=== PATIENT | female | born 1960 | race Caucasian/White ===

== ENCOUNTER 2020-01-14 12:03 | Inpatient (IN) | payer SELFPAY ==
[~2020-01-14] VITALS: Ht 157.5 cm; Wt 38.6 kg
[~2020-01-14 12:03] MED LIST: BACLOFEN20 M1 PO; VOLTAREN75 MG PO
[2020-01-14] MEDS ORDERED: COLACE100 MG PO (12:16)
[2020-01-14] MEDS ORDERED: FERROUS SULFAT325 MG PO (12:17)
[2020-01-14] MEDS ORDERED: VENTOLIN HFA [SP8 GM INH (12:18)
[2020-01-14] MEDS ORDERED: HYDROCODON-ACE1 EAC7 PO (12:19)
[2020-01-14 12:40] VITALS: BP 120/65; BMI 15.5
[2020-01-14 12:41] LABS: BASOPHILS 0.6 % (0-2); EOSINOPHILS 2.2 % (0-7); HEMATOCRIT 26.8 % (36.0-48.0); IMMATURE GRANULOCYTES 0.3 % (0-5); LYMPHOCYTES 25.9 % (15-50); MCH 20.6 pg (26.0-34.0); MCHC 27.6 g/dL (31.0-37.0); MCV 74.7 fL (80.0-100.0); MEAN PLATELET VOLUME 8.8 fL (7.4-10.4); MONOCYTES 9.6 % (2-11); NEUTROPHILS 61.4 % (40-80); PLATELET COUNT 258 10x3/uL (130-400); RBC 3.59 10x6/uL (4.00-5.40); RDW 18.9 % (11.5-14.5); WBC 7.2 10x3/uL (4.8-10.8)
[2020-01-14 12:50] LABS: HEMOGLOBIN 7.4 g/dL (12-16)
[2020-01-14 12:52] LABS: CALC OSMOLALITY 269 mosm/kg (275-300); CALCIUM 8.9 mg/dL (8.5-10.1); CARBON DIOXIDE 24.2 mmol/L (21.0-32.0); CHLORIDE - SERUM 102 mmol/L (98-107); CREATININE - SERUM 0.7 mg/dL (0.6-1.3); GLUCOSE 90 mg/dL (74-106); POTASSIUM - SERUM 3.6 mmol/L (3.5-5.1); SODIUM 136 mmol/L (136-145); UREA NITROGEN 7 mg/dL (7-18); eGFR NON AFRICAN AMERICAN > 90 mL/min (90-120)
[2020-01-14 12:58] LABS: ALBUMIN 3.7 g/dL (3.4-5.0); ALKALINE PHOSPHATASE 95 U/L (30-120); ALT (SGPT) 10 U/L (10-68); BILIRUBIN - TOTAL 0.14 mg/dL (0.2-1.3); PROTEIN - SERUM 7.3 g/dL (6.4-8.2)
--- NOTE | 2020-01-14 13:50 | NUR ---
RECEIVED PT FROM ADMISSIONS STAFF, PT IS ALERT AND OPRIENTED, STATED SHE DOES NOT WEAR O2 AT HOME AND JUST USES HER INHALERS, PT HAS IV ACCESS TO RT WRIST AREA. LUNGS CTA, ABD SOUNDS PRESENT. BED IN LOWEST POSITION, CL IN REACH. CONTINUE WITH PLAN OF CARE
[2020-01-14 14:58] LABS: % SATURATION 3 % (15-55); IRON 20 ug/dl (35-150); TOTAL IRON BIND CAPACITY 547 ug/dl (260-445)
[2020-01-14 15:02] LABS: UNSAT IRON BIND CAPACITY 527 ug/dl (150-375)
[2020-01-14 15:14] LABS: THYROID STIMULATING HORMONE 9.53 uIU/mL (0.36-3.74)
--- NOTE | 2020-01-14 15:30 | NUR ---
STARTED PT 1ST UNIT OF BLOOD. PT IS TOLERATING WELL, NO S/SX OF DISTESS, VSS. CONTINUE WITH PLAN OF CARE
[2020-01-14 20:00] VITALS: BP 126/79
--- NOTE | 2020-01-14 20:00 | NUR ---
PT SITTING UP IN BED WITHOUT DISTRESS, AOX4. FAMILY AT BEDSIDE. RIGHT RIGHT WRIST INFUSING 2ND UNIT OF PRBC. VSS. DENIES NEEDS. CL IN REACH, WILL CTM
--- NOTE | 2020-01-14 20:45 | NUR ---
NORCO GIVEN FOR PAIN 01/30. DENIES OTHER NEEDS. CL IN REACH, WILL CTM
[2020-01-15] VITALS: BP 111/58
--- NOTE | 2020-01-15 02:00 | NUR ---
PT GIVEN NORCO FOR PAIN 04/02. DENIES OTHER NEEDS, WILL CTM
[2020-01-15 04:00] VITALS: BP 118/61
[2020-01-15 04:28] LABS: BASOPHILS 1.3 % (0-2); EOSINOPHILS 3.6 % (0-7); IMMATURE GRANULOCYTES 0.2 % (0-5); LYMPHOCYTES 24.1 % (15-50); MCH 23.3 pg (26.0-34.0); MCHC 30.1 g/dL (31.0-37.0); MEAN PLATELET VOLUME 9.9 fL (7.4-10.4); MONOCYTES 14.7 % (2-11); NEUTROPHILS 56.1 % (40-80); PLATELET COUNT 229 10x3/uL (130-400); RBC 4.29 10x6/uL (4.00-5.40); RDW 19.3 % (11.5-14.5)
[2020-01-15 04:30] LABS: HEMATOCRIT 33.2 % (36.0-48.0); MCV 77.4 fL (80.0-100.0); WBC 4.5 10x3/uL (4.8-10.8)
[2020-01-15 04:54] LABS: % SATURATION 10 % (15-55); IRON 41 ug/dl (35-150); TOTAL IRON BIND CAPACITY 406 ug/dl (260-445); UNSAT IRON BIND CAPACITY 365 ug/dl (150-375)
[2020-01-15 05:32] LABS: ALBUMIN 2.8 g/dL (3.4-5.0); ALKALINE PHOSPHATASE 81 U/L (30-120); ALT (SGPT) 8 U/L (10-68); BILIRUBIN - TOTAL 0.17 mg/dL (0.2-1.3); CALC OSMOLALITY 279 mosm/kg (275-300); CALCIUM 8.5 mg/dL (8.5-10.1); CARBON DIOXIDE 24.8 mmol/L (21.0-32.0); CHLORIDE - SERUM 112 mmol/L (98-107); CREATININE - SERUM 0.7 mg/dL (0.6-1.3); FERRITIN 7 ng/mL (3-244); GLUCOSE 84 mg/dL (74-106); POTASSIUM - SERUM 3.7 mmol/L (3.5-5.1); PROTEIN - SERUM 5.7 g/dL (6.4-8.2); SODIUM 142 mmol/L (136-145); UREA NITROGEN 6 mg/dL (7-18); eGFR NON AFRICAN AMERICAN > 90 mL/min (90-120)
--- NOTE | 2020-01-15 07:53 | NUR ---
PT SITTING UP IN BED RECEIVING BREATHING TREATMENT, ASKED FOR LIQUIDS, PT EGD SCHEDULED FOR 3PM. ADVISED PT SHE MUST BE NPO FOR AT LEAST 6 HOURS SO NOTHING AFTER 8AM. ADMNISTERED SCHEDULED MEDS, PT IS ALERT AND ORIENTED H&H IMPROVED AFTER 2 UNITS ADMNISTERED YESTERDAY. CL IN REACH CONTINUE WITH PLAN OF CARE
[2020-01-15 09:10] VITALS: BP 150/69
[2020-01-15 12:40] VITALS: BP 120/64
[2020-01-15 14:02] VITALS: Ht 157.5 cm; Wt 38.6 kg
[2020-01-15 15:11] LABS: CEA 3.5 ng/mL (0.0-4.7)
--- NOTE | 2020-01-15 17:03 | NUR ---
I have reviewed this patient and I concur with the Shift Assessment completed by the Licensed Practical Nurse today this shift.
[2020-01-15 17:15] VITALS: BP 146/66
--- NOTE | 2020-01-15 19:30 | NUR ---
PT SITTING UP IN BED WITHOUT DISTRESS, AOX4. IV RIGHT FA SL, DENIES NEEDS AT THIS TIME. CL IN REACH, WILL CTM
[2020-01-15 20:00] VITALS: BP 119/66
[2020-01-16] VITALS: BP 112/65
[2020-01-16 04:00] VITALS: BP 103/54
[2020-01-16 06:58] LABS: BASOPHILS 0.4 % (0-2); EOSINOPHILS 3.9 % (0-7); HEMATOCRIT 33.5 % (36.0-48.0); HEMOGLOBIN 9.8 g/dL (12-16); IMMATURE GRANULOCYTES 0.2 % (0-5); LYMPHOCYTES 16.7 % (15-50); MCHC 29.3 g/dL (31.0-37.0); MCV 78.5 fL (80.0-100.0); MONOCYTES 12.2 % (2-11); NEUTROPHILS 66.6 % (40-80); PLATELET COUNT 224 10x3/uL (130-400); RBC 4.27 10x6/uL (4.00-5.40); RDW 19.7 % (11.5-14.5); WBC 5.4 10x3/uL (4.8-10.8)
[2020-01-16 07:13] LABS: ALBUMIN 3.1 g/dL (3.4-5.0); ALKALINE PHOSPHATASE 120 U/L (30-120); ALT (SGPT) 9 U/L (10-68); CALC OSMOLALITY 278 mosm/kg (275-300); CALCIUM 8.9 mg/dL (8.5-10.1); CHLORIDE - SERUM 109 mmol/L (98-107); CREATININE - SERUM 0.7 mg/dL (0.6-1.3); GLUCOSE 77 mg/dL (74-106); POTASSIUM - SERUM 3.6 mmol/L (3.5-5.1); PROTEIN - SERUM 6.3 g/dL (6.4-8.2); SODIUM 142 mmol/L (136-145); UREA NITROGEN 5 mg/dL (7-18); eGFR NON AFRICAN AMERICAN > 90 mL/min (90-120)
--- NOTE | 2020-01-16 07:29 | NUR ---
ALERT AND ORIENTED. LUNGS CLEAR BILATERALLY. HEART SOUNDS S1 AND S2 HEARD IN ALL GREGORIO. BOWEL SOUNDS ACTIVE X 4. IV TO RIGHT WRIST PATENT WITHOUT REDNESS. DENIES NEEDS. BED LOW. CALL VERGARA AND PERSONAL ITEMS IN REACH. WILL CONTINUE TO MONITOR.
[2020-01-16] MEDS ORDERED: SYNTHROID25 MCG PO (09:40)
[2020-01-16] MEDS ORDERED: NICODERM CQ1 EAC2 TRANSDERM (09:40)
[2020-01-16] MEDS ORDERED: PROTONIX40 MG PO (09:41)
[2020-01-16 11:05] VITALS: BP 120/68
--- NOTE | 2020-01-16 13:42 | NUR ---
DISCHARGE EDUCATION PROVIDED BOTH WRITTEN AND VERBAL.VERBALIZED UNDERSTANDING DENIES FURTHER QUESTIONS. IV REMOVED FROM RFA WITH TIP INTACT. PATIENT DC HOME WITH ALL BELONGINGS.
== END 2020-01-16 13:43 | disposition home or self-care (01) | DRG 811 ==
LOC: D.MS 12:03
PROVIDERS: Family Medicine; Internal Medicine Gastroenterology; ADMIT Family Medicine; ATTEND Family Medicine
PROC: 0DB68ZX Excision of Stomach, Via Natural or Artificial Opening Endoscopic, Diagnostic (ICD-10-PCS; principal; 2020-01-15 15:00)
DX: D64.9 Anemia, unspecified (principal); E43 Unspecified severe protein-calorie malnutrition; K25.4 Chronic or unspecified gastric ulcer with hemorrhage; K21.0 Gastro-esophageal reflux disease with esophagitis

== ENCOUNTER 2020-03-08 09:55 | Emergency (ER) | payer SELFPAY ==
[~2020-03-08] VITALS: Ht 157.5 cm; Wt 39.5 kg
[~2020-03-08 09:55] MED LIST changes: +COLACE100 MG PO; +FERROUS SULFAT325 MG PO; +HYDROCODON-ACE1 EAC7 PO; +NICODERM CQ1 EAC2 TRANSDERM; +PROTONIX40 MG PO; +SYNTHROID25 MCG PO; +VENTOLIN HFA [SP8 GM INH
[2020-03-08 10:11] VITALS: Ht 157.5 cm; Wt 39.5 kg
[2020-03-08 10:33] LABS: BASOPHILS 0.2 % (0-2); EOSINOPHILS 0.2 % (0-7); HEMATOCRIT 37.5 % (36.0-48.0); HEMOGLOBIN 11.8 g/dL (12-16); IMMATURE GRANULOCYTES 0.2 % (0-5); LYMPHOCYTES 15.8 % (15-50); MCH 26.5 pg (26.0-34.0); MCHC 31.5 g/dL (31.0-37.0); MCV 84.3 fL (80.0-100.0); MEAN PLATELET VOLUME 8.7 fL (7.4-10.4); NEUTROPHILS 77.6 % (40-80); PLATELET COUNT 259 10x3/uL (130-400); RBC 4.45 10x6/uL (4.00-5.40); RDW 24.1 % (11.5-14.5); WBC 6.5 10x3/uL (4.8-10.8)
[2020-03-08 10:46] LABS: BILIRUBIN NEGATIVE (NEGATIVE); GLUCOSE NEGATIVE (NEGATIVE); KETONE NEGATIVE (NEGATIVE); NITRITE NEGATIVE (NEGATIVE); UROBILINOGEN NORMAL (NORMAL)
[2020-03-08 10:51] LABS: CALC OSMOLALITY 281 mosm/kg (275-300); CALCIUM 9.4 mg/dL (8.5-10.1); CARBON DIOXIDE 25.6 mmol/L (21.0-32.0); CHLORIDE - SERUM 105 mmol/L (98-107); CREATININE - SERUM 0.8 mg/dL (0.6-1.3); GLUCOSE 93 mg/dL (74-106); POTASSIUM - SERUM 3.4 mmol/L (3.5-5.1); SODIUM 142 mmol/L (136-145); UREA NITROGEN 9 mg/dL (7-18); eGFR NON AFRICAN AMERICAN 78 mL/min (90-120)
[2020-03-08 10:59] LABS: ALBUMIN 4.1 g/dL (3.4-5.0); ALKALINE PHOSPHATASE 92 U/L (30-120); ALT (SGPT) 10 U/L (10-68); AMYLASE - SERUM 56 U/L (25-115); LIPASE 70 U/L (73-393); PROTEIN - SERUM 7.1 g/dL (6.4-8.2)
[2020-03-08 11:01] LABS: TROPONIN-I < 0.017 ng/mL (0.000-0.060)
[2020-03-08] MEDS ORDERED: LEVOFLOXACIN500 MG PO (12:40)
[2020-03-08] MEDS ORDERED: ZOFRAN ODT4 MG/UDTAB PO (12:40)
[2020-03-08] MEDS ORDERED: FLORASTOR250 MG PO (12:40)
[2020-03-08] MEDS ORDERED: FLAGYL500 MG PO (12:40)
[2020-03-08 13:18] VITALS: BP 177/97
== END 2020-03-08 13:21 | disposition home or self-care (01) ==
LOC: D.ER 09:55
PROVIDERS: Family Medicine
DX: R51 Headache (principal); K52.9 Noninfective gastroenteritis and colitis, unspecified; E87.6 Hypokalemia

== ENCOUNTER 2020-03-09 21:32 | Inpatient (IN) | payer SELFPAY ==
[~2020-03-09] VITALS: Ht 157.5 cm; Wt 39.5 kg
--- NOTE | ~2020-03-09 | EEG ---
PATIENT:JUDE URSSELL MEDICAL RECORD: [id number] DATE OF : 64 LOCATION:D.220 D.MS ADMISSION DATE: 03/09/20 REFERRING PHYSICIAN: INTERPRETING PHYSICIAN: NADEGE DORSEY MD DATE OF SERVICE: 03/11/2020 DATE OF EE03/11/2020 ROOM NUMBER: 2201 ORDERED BY: Dr. Dorsey. CASE HISTORY: A 59-year-old female presenting to the hospital with report of a single seizure with symptoms suggesting generalized seizure with sudden onset of shaking of head and all extremities jerking, and after spell the patient was confusional. Question has been raised as to whether or not seizure could be secondary to Levaquin use. PROCEDURE: EEG done as a routine bedside portable recording using the standard 10-20 international electrode system, 16-channel was used with 17th as EKG. Photic stimulation was used as activation procedures. DESCRIPTION OF PROCEDURE: EEG opens with the patient awake with the record displaying only fair organization of background. In left hemisphere, there was a posterior dominant rhythm of 15 Hz, occasionally configured with theta slowing. In the right hemisphere, there was frequent and prominent theta slowing as well as frequent delta slowing all much more prominent in the right hemisphere than left. There were bilateral synchronous complexes of sharps and slows with increased amplitude in the right hemisphere. There was also frequent spike and wave activity in the right hemisphere, primarily at T4-T6 with higher amplitudes as well as other electrode regions of C4-P4, P4-T6, F8-T6. Photic stimulation did not yield a photoparoxysmal response. IMPRESSION: Markedly abnormal EEG with an active seizure focus in the right hemisphere suggesting a focal seizure disorder. TRANSINT:[id number] Voice Confirmation ID: [id number] DOCUMENT ID: [id number] NADEGE DORSEY MD CC: [id number] DICTATION DATE: 03/11/20 1146 ELECTROMECHANICAL EQUIPMENT TESTER: 03/11/20 1400 ADM IN [place] [address] [place] [address]
[~2020-03-09 21:32] MED LIST changes: +FLAGYL500 MG PO; +FLORASTOR250 MG PO; +LEVOFLOXACIN500 MG PO; +ZOFRAN ODT4 MG/UDTAB PO
--- NOTE | 2020-03-09 21:50 | NUR ---
FRIEND OF PATIENT CALLED FOR STAFF TO COME TO THE ROOM, DUE TO PT HAVING A SIEZURE, UPON ARRIVAL THIS NURSE NOTED PT IN A POST ECTAL STATE. PT GIVEN MEDS PER MD ORDERS
[2020-03-09 22:04] LABS: BASOPHILS 0.1 % (0-2); EOSINOPHILS 0.8 % (0-7); HEMATOCRIT 37.5 % (36.0-48.0); HEMOGLOBIN 12.1 g/dL (12-16); IMMATURE GRANULOCYTES 0.5 % (0-5); LYMPHOCYTES 11.6 % (15-50); MCHC 32.3 g/dL (31.0-37.0); MCV 83.7 fL (80.0-100.0); MEAN PLATELET VOLUME 8.9 fL (7.4-10.4); MONOCYTES 10.8 % (2-11); NEUTROPHILS 76.2 % (40-80); PLATELET COUNT 291 10x3/uL (130-400); RBC 4.48 10x6/uL (4.00-5.40); RDW 23.3 % (11.5-14.5)
[2020-03-09 22:13] LABS: CALC OSMOLALITY 266 mosm/kg (275-300); CARBON DIOXIDE 20.5 mmol/L (21.0-32.0); CHLORIDE - SERUM 96 mmol/L (98-107); GLUCOSE 97 mg/dL (74-106); SODIUM 134 mmol/L (136-145); UREA NITROGEN 9 mg/dL (7-18); eGFR NON AFRICAN AMERICAN 49 mL/min (90-120)
[2020-03-09 22:20] LABS: CREATININE - SERUM 1.2 mg/dL (0.6-1.3)
[2020-03-09 22:29] LABS: ALBUMIN 3.9 g/dL (3.4-5.0); ALKALINE PHOSPHATASE 90 U/L (30-120); ALT (SGPT) 11 U/L (10-68); BILIRUBIN - TOTAL 0.18 mg/dL (0.2-1.3); CREATINE KINASE 72 UL (21-215); MAGNESIUM - SERUM 1.9 mg/dL (1.8-2.4); PRO BNP 805 pg/mL (0-125); THYROID STIMULATING HORMONE 2.31 uIU/mL (0.36-3.74)
[2020-03-09 22:30] LABS: LIPASE 115 U/L (73-393); TROPONIN-I < 0.017 ng/mL (0.000-0.060)
[2020-03-10] VITALS (7 sets, daily range): BP systolic 128–156; BP diastolic 63–91; Ht 157.5 cm; Wt 39.5 kg
[2020-03-10 00:05] LABS: UDS - AMPHET NEGATIVE QUAL (NEGATIVE); UDS - BARB NEGATIVE QUAL (NEGATIVE); UDS - BENZO NEGATIVE QUAL (NEGATIVE); UDS - COCAINE NEGATIVE QUAL (NEGATIVE); UDS - OPIATE POSITIVE QUAL (NEGATIVE); UDS - PCP NEGATIVE QUAL (NEGATIVE); UDS - THC NEGATIVE QUAL (NEGATIVE)
[2020-03-10 00:28] LABS: BILIRUBIN NEGATIVE (NEGATIVE); GLUCOSE NEGATIVE (NEGATIVE); KETONE SMALL mg/dL (NEGATIVE); NITRITE NEGATIVE (NEGATIVE); UROBILINOGEN NORMAL (NORMAL)
[2020-03-10 00:31] LABS: BACTERIA FEW /hpf (NEGATIVE); EPITHELIAL CELLS 0-5 /hpf (0-5); RED CELLS - URINE 0-5 /hpf (0-5)
--- NOTE | 2020-03-10 03:34 | NUR ---
ROCEPHIN INFUSION COMPLETE AT THIS TIME. PT RESTING IN BED WITH FRIEND, RISE AND FALL OF CHEST NOTED. WILL CONTINUE TO MONITOR.
--- NOTE | 2020-03-10 04:00 | NUR ---
FLAGYL INFUSION COMPLETE AT THIS TIME.
[2020-03-10 04:18] LABS: APTT 25.7 SECONDS (22.8-39.4); INR 1.08 (0.85-1.17); PROTIME 13.9 SECONDS (11.6-15.0)
[2020-03-10 04:35] LABS: CHOL - HDL RATIO 4.5 ratio (2.3-4.1)
--- NOTE | 2020-03-10 09:54 | NUR ---
Rehab Note- Acute Inpatient Rehab prescreen order received. The patient has no noted insurance at this time per facesheet. Will check with business office to verify insurance. Thank you for this referral! Janice Hart RN Clinical Liaison, [facility] Rehab
--- NOTE | 2020-03-10 14:04 | NUR ---
PATIENT ADMITTED TO ROOM 2201. ADMISSION COMPLETE. DENIES NEEDS. DR RIKA STRICKLAND.
--- NOTE | 2020-03-10 16:35 | NUR ---
SPOKE WITH DR MELÉNDEZ WHO STATES WILL SEE PATIENT MONDAY IF PATIENT STILL HERE BUT LIKELY LEVAQUIN REACTION.
--- NOTE | 2020-03-10 20:00 | NUR ---
A&O X 4, SUPINE IN BED, NO WEAKNESS. REPORTS HEADACHE 01/30. REQUESTS SLEEP AID FOR TONIGHT, NO FURTHER NEEDS BIANCA. CTM.
--- NOTE | 2020-03-11 01:45 | NUR ---
I have reviewed this patient and I concur with the Shift Assessment completed by the Licensed Practical Nurse today this shift.
[2020-03-11 04:00] VITALS: BP 140/75
[2020-03-11 06:11] LABS: BASOPHILS 0.4 % (0-2); EOSINOPHILS 5.5 % (0-7); HEMATOCRIT 33.1 % (36.0-48.0); HEMOGLOBIN 10.4 g/dL (12-16); IMMATURE GRANULOCYTES 0.2 % (0-5); LYMPHOCYTES 16.1 % (15-50); MCH 26.4 pg (26.0-34.0); MCHC 31.4 g/dL (31.0-37.0); MEAN PLATELET VOLUME 8.6 fL (7.4-10.4); MONOCYTES 13.6 % (2-11); NEUTROPHILS 64.2 % (40-80); PLATELET COUNT 236 10x3/uL (130-400); RBC 3.94 10x6/uL (4.00-5.40); RDW 23.6 % (11.5-14.5)
[2020-03-11 06:37] LABS: CALCIUM 8.6 mg/dL (8.5-10.1); CHLORIDE - SERUM 105 mmol/L (98-107); GLUCOSE 86 mg/dL (74-106); MAGNESIUM - SERUM 1.9 mg/dL (1.8-2.4); PHOSPHOROUS 3.4 mg/dL (2.5-4.9); SODIUM 141 mmol/L (136-145)
[2020-03-11 06:44] LABS: WBC 4.7 10x3/uL (4.8-10.8)
[2020-03-11 07:46] LABS: CALC OSMOLALITY 276 mosm/kg (275-300); CARBON DIOXIDE 26.2 mmol/L (21.0-32.0); CREATININE - SERUM 0.7 mg/dL (0.6-1.3); UREA NITROGEN 4 mg/dL (7-18); eGFR NON AFRICAN AMERICAN > 90 mL/min (90-120)
[2020-03-11 07:50] LABS: POTASSIUM - SERUM 2.7 mmol/L (3.5-5.1)
[2020-03-11 08:46] VITALS: BP 156/74
--- NOTE | 2020-03-11 09:09 | NUR ---
RESTING IN BED, NO DISTRESS NOTED, IV INFUSING WITH KEPPRA, CONT TO MONITOR FOR SEIZURES
[2020-03-11 12:17] VITALS: BP 140/63
[2020-03-11] MEDS ORDERED: NICODERM CQ1 EAC3 TRANSDERM (12:46)
[2020-03-11] MEDS ORDERED: KEPPRA750 MG PO (12:47)
[2020-03-11] MEDS ORDERED: FLAGYL500 MG PO (12:48)
--- NOTE | 2020-03-11 14:17 | MORECARE ---
CASE MANAGEMENT DISCHARGE SUMMARY PATIENT: JUDE RUSSELL UNIT: [id number] ADM DATE: 03/09/20 AGE: 59 : [birth year] SEX: F ROOM/BED: D.2201 AUTHOR: ANTIONETTE STAPLES PHYSICIAN: REFERRING PHYSICIAN: ENRRIQUE RED MD DATE OF SERVICE: 03/11/20 Discharge Plan Patient Name: JUDE RUSSELL Facility: [facility]:[place] : 1960 Planned Disposition: Home or Self Care Anticipated Discharge Date: Discharge Date: Expected LOS: Initial Reviewer: [email or web address] Initial Review Date: 03/10/2020 Generated: 03/11/20 3:17 pm Comments DCP- Discharge Planning Updated by [email or web address]: Kelly Lutz on 03/11/20 1:[address] Patient Name: JUDE RUSSELL Admission Status: ER Accout number: [id number] Admission Date: 03-09-2020 : 1960 Admission Diagnosis: Attending: ENRRIQUE MATT Current LOS: 2 Anticipated DC Date: Planned Disposition: Home or Self Care Primary Insurance: UNINSURED DISCOUNT PLAN Discharge Planning Comments: CM met with patient to complete initial dc planning assessment. CM educated patient on the CM role and verbal consent given by patient to complete assessment. Patient lives at home & states that her mother just moved in with her. At discharge patient plans to return home and feels this is a safe discharge. CM discussed availability of home health, rehab services, and medical equipment. Her friend lives next door and will be her otr refrigerated cdl truck driver home. She works at [employer] and states that she has the money to fill her prescription of Keppra and abx. Patient denied known discharge needs at this time. CM will continue to follow and will assist as needed with dc plans/needs. Parts Advisor: Kelly Lutz DCPIA - Discharge Planning Initial Assessment Updated by [email or web address]: Kelly Lutz on 03/11/20 2:11 pm * Is the patient Alert and Oriented? Yes * How many steps to enter\exit or inside your home? * PCP WEEKS * Pharmacy [address] [facility] * Preadmission Environment Home with Family * ADLs Independent * Equipment None * List name and contact numbers for known caregivers / representatives who currently or will assist patient after discharge: MIRELLA RUSSELL [phone] * Verbal permission to speak to the caregivers and representatives has been obtained from the patient. N/A * Community resources currently utilized None * Additional services required to return to the preadmission environment? No * Can the patient safely return to the preadmission environment? Yes * Has this patient been hospitalized within the prior 30 days at any hospital? No Patient Name: JUDE RUSSELL Page [phone] at 1417 All edits/amendments must be made on the electronic document DICTATION DATE: 03/11/201416 BROTH MIXER: ZINA 03/11/201416 RPT#: [id number] DC DATE: STATUS: ADM IN [facility] [address] [place] [address] END OF REPORT
--- NOTE | 2020-03-11 15:18 | NUR ---
TOOK K RIDER TO PT ROOM TO START RIDERS AND THEN DC PT TO HOME, PT STATES THAT SHE IS NOT STAYING 3 HOURS FOR RIDERS TO COMPLETE, STATES THAT SHE CALLED HER SISTER TO COME ALREADY AND SHE COULD TAKE POTASSIUM AT HOME, STATED THAT K WAS LOW AND WOULD RESPOND BETTER TO IV, PT STATES NO IM LEAVING, PRINCE AWARE, STATES TO ALLOW PT TO GO AMA, PT SIGNED AMA, IV WAS REMOVED,TIP INTACT, PT WALKED [facility]
--- NOTE | 2020-03-12 13:38 | MORECARE ---
CASE MANAGEMENT DISCHARGE SUMMARY PATIENT: JUDE RUSSELL UNIT: [id number] ADM DATE: 03/09/20 AGE: 59 : 64 SEX: F ROOM/BED: D.2201 AUTHOR: ANTIONETTE STAPLES PHYSICIAN: REFERRING PHYSICIAN: ENRRIQUE RED MD DATE OF SERVICE: 03/12/20 Discharge Plan Patient Name: JUDE RUSSELL Facility: [facility]:[place] : 1960 Planned Disposition: Home or Self Care Anticipated Discharge Date: Discharge Date: 03/11/2020 Expected LOS: Initial Reviewer: [email or web address] Initial Review Date: 03/10/2020 Generated: 03/12/20 2:37 pm Comments DCP- Discharge Planning Updated by [id number]: Kelly Lutz on 03/11/20 1:[address] Patient Name: JUDE RUSSELL Admission Status: ER Accout number: [id number] Admission Date: 03-09-2020 : 1960 Admission Diagnosis: Attending: ENRRIQUE MATT Current LOS: 2 Anticipated DC Date: Planned Disposition: Home or Self Care Primary Insurance: UNINSURED DISCOUNT PLAN Discharge Planning Comments: CM met with patient to complete initial dc planning assessment. CM educated patient on the CM role and verbal consent given by patient to complete assessment. Patient lives at home & states that her mother just moved in with her. At discharge patient plans to return home and feels this is a safe discharge. CM discussed availability of home health, rehab services, and medical equipment. Her friend lives next door and will be her pick up and delivery driver home. She works at [employer] and states that she has the money to fill her prescription of Keppra and abx. Patient denied known discharge needs at this time. CM will continue to follow and will assist as needed with dc plans/needs. Academic Support Assistant: Kelly Lutz DCPIA - Discharge Planning Initial Assessment Updated by [email or web address]: Kelly Lutz on 03/11/20 2:11 pm * Is the patient Alert and Oriented? Yes * How many steps to enter\exit or inside your home? * PCP WEEKS * Pharmacy [address] [facility] * Preadmission Environment Home with Family * ADLs Independent * Equipment None * List name and contact numbers for known caregivers / representatives who currently or will assist patient after discharge: MIRELLA RUSSELL [phone] * Verbal permission to speak to the caregivers and representatives has been obtained from the patient. N/A * Community resources currently utilized None * Additional services required to return to the preadmission environment? No * Can the patient safely return to the preadmission environment? Yes * Has this patient been hospitalized within the prior 30 days at any hospital? No Last DP export: 03/11/20 1:17 p Patient Name: JUDE RUSSELL Page [phone] at 1338 All edits/amendments must be made on the electronic document DICTATION DATE: 03/12/201336 MAPPER: ZINA 03/12/201336 RPT#: [id number] DC DATE:03/11/20 STATUS: DIS IN [facility] [address] [place] [address] END OF REPORT
--- NOTE | 2020-03-13 08:19 | EC ---
PATIENT:JUDE RUSSELL DATE OF SERVICE: 03/09/20 SEX: F MEDICAL RECORD: [id number] DATE OF : [birth year] LOCATION:D.MS [place] AGE OF PATIENT: 59 ADMISSION DATE: 03/09/20 REFERRING PHYSICIAN: INTERPRETING PHYSICIAN: EVETTE SCHAFFER MD ECHOCARDIOGRAM REPORT ECHO CHARGES 4 ECHO COMPLETE Date: 03/10/20 CLINICAL DIAGNOSIS: NEW ONSET SEIZURE ACTIVITY, POSSIBLE CVA, R/O CARDIOEMBOLISM ECHOCARDIOGRAPHIC MEASUREMENTS (adult normal given) AC root (d.<3.7cm) 2.2 cm LV Septum d (<1.2 cm> 0.6 cm Valve Excursion 1.5 cm LV Septum (systole) 0.8 cm Left Atria (s.<4.0cm> 2.1 cm LVPW d(<1.2cm) 0.9 cm RV (d.<2.3cm) 2.3 cm LVPW (sytole) 1.0 cm LV diastole(<5.6CM) 4.7 cm MV E-F(>70mm/sec) cm LV systole 3.6 cm LVOT Diameter 1.5 cm MV exc.(>10mm) cm Est.ejection fraction (50-75%) % DOPPLER: LVIT cm/sec A 74 cm/sec E 57 cm/sec LA cm/sec RVSP 21.3 mmHg LVOT 99 cm/sec AOP1/2T m/s Asc. Ao 129 cm/sec RVOT 71 cm/sec RA cm/sec PA 79 cm/sec AV Gradient Peak 6.7 mmHg AV Mean 3.2 mmHg AV Area 1.3 cm MV Gradient Peak 2.7 mmHg MV Mean 1.4 mmHg MV Area cm COMMENTS: Sex Crimes Detective: 5 [facility] Ware Carrier: 3 Dr. Emanuel TAPE# PACS Pericardial Effusion N DATE OF SERVICE: Adequate 2D, color-flow imaging, spectral Doppler, and M-Mode. No LVH. LV internal dimensions are normal. Wall motion is normal. EF is greater than or equal to 55%. Aortic valve is tricuspid. No evidence of stenosis by Doppler interrogation. Left atrium is normal 3.1 cm. Mitral valve shows no prolapse. Trace MR. Right-sided chambers are grossly normal. Trace TR. ECHOCARDIOGRAM REPORT [id number] JUDE RUSSELL TRANSINT:[id number] Voice Confirmation ID: [id number] DOCUMENT ID: [id number] EVETTE SCHAFFER MD at 0819 CC: [id number] DICTATION DATE: 03/10/20 1449 LIGHTING ENGINEER: 03/10/20 2311 DIS IN 03/11/20 [place] [id number] [place] [id number]
== END 2020-03-11 15:25 | disposition home or self-care (01) | DRG 100 ==
LOC: D.ER 21:32 → D.EDHOLD 23:02 → D.MS 23:02
PROVIDERS: Family Medicine; ADMIT Family Medicine Adult Medicine; ATTEND Family Medicine Adult Medicine
DX: G40.909 Epilepsy, unspecified, not intractable, without status epilepticus (principal); G93.41 Metabolic encephalopathy; N39.0 Urinary tract infection, site not specified; F17.203 Nicotine dependence unspecified, with withdrawal; K52.9 Noninfective gastroenteritis and colitis, unspecified; E87.6 Hypokalemia; I10 Essential (primary) hypertension; J44.9 Chronic obstructive pulmonary disease, unspecified; E03.9 Hypothyroidism, unspecified; G89.29 Other chronic pain; M54.9 Dorsalgia, unspecified; M19.90 Unspecified osteoarthritis, unspecified site; Z86.73 Personal history of transient ischemic attack (TIA), and cerebral infarction without residual deficits